=== PATIENT | female | born 1950 ===

== ENCOUNTER 2018-12-24 13:12 | Emergency (ER) | payer MEDICARE ==
--- NOTE | 2018-12-24 13:23 | NUR ---
PT LBT BECAUSE SHE WAS ABLE TO GET AN APT WITH [facility]
== END 2018-12-24 13:25 | disposition left against medical advice (07) ==
LOC: ER 13:13
DX: J34.89 Other specified disorders of nose and nasal sinuses (principal); Z53.21 Procedure and treatment not carried out due to patient leaving prior to being seen by health care provider